=== PATIENT | female | born 1985 | race Caucasian/White ===

== ENCOUNTER 2023-01-02 21:35 | Emergency (ER) | payer MEDICAID, SELFPAY ==
[2023-01-02 21:36] VITALS: BP 170/80; PULSE 89; RESP 18; TEMP 36.8; O2SAT 99; BMI 28.1
--- NOTE | 2023-01-02 22:02 | ED.VIS.DENTA ---
HPI History of Present Illness Chief Complaint: Dental Informant: patient Narrative Narrative: 37-year-old female presenting to the emergency room with a swollen right lower jaw. Symptoms began this morning when she woke from sleep. She did not notice anything yesterday. She has had some chronic right lower molar dental decay. She states she is not a smoker does not chew tobacco. She has not had any fevers. She has been able to eat and drink although it uncomfortable. No dry mouth. PFSH PFS Medical History (Updated 01/02/23 @ 22:[address] Fantasma Singh DO) Cczlv-Dzgnfuqdf-Irxzu (WPW) pattern Allergy/AdvReac Type Severity Reaction Status Date / Time Latex, Natural Rubber Allergy Intermediate Swelling Verified 01/02/23 21:41 Penicillins AdvReac Mild Upset Verified 01/02/23 21:41 Stomach ASPRIN AdvReac Mild Upset Uncoded 01/02/23 21:41 Stomach BABY ASPRIN AdvReac Mild Upset Uncoded 01/02/23 21:41 Stomach Social History (Updated 01/02/23 @ 22:[address] aFntasma Singh DO) Smoking Status: Never smoker substance use type: does not use ROS ROS ED Constitutional Constitutional ED: Denies chills or weight loss Eyes Eyes: Denies change in vision or diplopia ENT ENT ED: Reports other Details: Right jaw swelling and pain ; Denies ear pain, rhinorrhea or sore throat Cardiovascular Cardiovascular: Denies chest pain, orthopnea, palpitations or racing heartbeat Respiratory/Chest Respiratory/Chest: Denies cough, dyspnea or orthopnea Gastrointestinal Gastrointestinal: Denies abdominal pain, diarrhea, nausea or vomiting Genitourinary Genitourinary ED: Denies dysuria, hematuria or urinary frequency Musculoskeletal Musculoskeletal: Denies arthralgias or myalgias Integumentary Denies abscess or rash Neurologic Neurologic: Denies headache(s) or weakness Psychiatric Psychiatric: Denies anxiety, depression, suicidal ideation or suicidal thoughts Endocrine Endocrinology: Denies polydipsia, polyphagia or polyuria Allergic/Immunologic Allergic/Immunologic ED: Denies mouth swelling, tongue swelling or urticaria EXAM Physical Exam Const Vital Signs: 01/02/23 21:36 Temperature 98.3 F Temperature Source Temporal Pulse Rate 89 Respiratory Rate 18 Blood Pressure 170/80 H Blood Pressure Mean 110 Pulse Ox 99 Oxygen Delivery Method Room Air Positive well nourished and well developed General Appearance ED: well developed HEENT Reports normocephalic, head/scalp atraumatic and moist mucous membranes HEENT Narrative: Patient has a significant amount of swelling over the inferior aspect of the right mandible. There is no overlying erythema. There is no trismus. She has focal decay of the first molar. There is no abscess coming up along the gumline that is amendable to drainage. The floor the mouth is soft. Eyes PERRL and EOMs intact bilaterally Neck no lymphadenopathy, supple and no JVD Resp normal respiratory effort and clear to auscultation bilaterally Cardio regular rate, regular rhythm and no murmurs GI normal to inspection, nondistended, normoactive bowel sounds and non-tender Palpation: soft Back/Spine no CVA tenderness and normal ROM Extremity normal to inspection General Extremety ED: Negative for edema General Extremity: Negative for edema Neuro oriented x3 and CN's II-XII intact bilaterally Sensorium / Orientation: alert Motor Exam: strength 5/5 throughout Psych mental status grossly normal Mood & Affect: Negative for depressed or tearful Skin no rashes or lesions noted and no wounds MDM MDM MDM Narrative Medical decision making narrative: With a penicillin allergy patient will be started on clindamycin. I can write for a few [place] would recommend icing anti-inflammatories. Patient needs to follow-up with dentistry. She was advised that she may still get worse before this gets better. She understands return instructions Discharge Plan Triage Chief Complaint: Dental ED Provider: Fantasma Singh Dx/Rx/DC Orders Primary Care Provider: NOT,DEFINED Referrals: NOT,DEFINED [Primary Care Provider] -
[2023-01-02 22:30] VITALS: BP 150/79; PULSE 79; RESP 16; O2SAT 100
== END 2023-01-02 22:41 | disposition home or self-care (01) ==
PROVIDERS: Emergency Provider Emergency Medicine; Visit Provider Emergency Medicine
DX: K02.9 Dental caries, unspecified (principal)
CPT/HCPCS: 99282